=== PATIENT | female | born 1965 | race Caucasian/White ===

== ENCOUNTER → 2017-03-16 | Outpatient (CLI) | payer OTHER ==
[~2017-03-16] MED LIST: ALPR-475 PO; ESTR-8 TD; FAMO-79 PO; IBUP200T64 PO; METO25TA35 PO
== END | disposition home or self-care (01) ==
LOC: CFH 15:45
PROVIDERS: ATTEND Family Medicine
DX: M79.604 Pain in right leg (principal); M79.89 Other specified soft tissue disorders

== ENCOUNTER → 2017-05-22 | Outpatient (CLI) | payer OTHER | END | disposition home or self-care (01) | LOC: CFH 14:58 | PROVIDERS: ATTEND Obstetrics & Gynecology Gynecology | DX: Z12.31 Encounter for screening mammogram for malignant neoplasm of breast (principal) | CPT/HCPCS: G0202 ==

== ENCOUNTER → 2017-07-21 | Outpatient (CLI) | payer OTHER | END | disposition home or self-care (01) | LOC: CFH 07:19 | PROVIDERS: ATTEND Family Medicine | DX: N28.1 Cyst of kidney, acquired (principal) | CPT/HCPCS: 76700 ==

== ENCOUNTER → 2018-05-24 | Outpatient (CLI) | payer OTHER | END | disposition home or self-care (01) | LOC: CFH 09:58 | PROVIDERS: ATTEND Obstetrics & Gynecology | DX: Z12.31 Encounter for screening mammogram for malignant neoplasm of breast (principal) | CPT/HCPCS: 77067 ==

== ENCOUNTER 2018-06-16 12:58 | Emergency (ER) | payer OTHER ==
[~2018-06-16] VITALS: Ht 170.2 cm; Wt 76.5 kg
[2018-06-16 13:26] VITALS: BP 170/96
[2018-06-16] MEDS ORDERED: KETOROLAC 30 MG/1 ML ONE (14:21)
[2018-06-16] MEDS ORDERED: METHOCARBAMOL 750 MG TABLET ONE (14:21)
[2018-06-16] MEDS ORDERED: KETOROLAC 30 MG/1 ML IM ONE (14:30)
[2018-06-16] MEDS ORDERED: METHOCARBAMOL 750 MG TABLET PO ONE (14:30)
[2018-06-16] MEDS ORDERED: METO25TA91 PO (14:47)
[2018-06-16] MEDS ORDERED: METO-93 PO (14:47)
[2018-06-16] MEDS ORDERED: ESTR1PAT65 TD (14:49)
[2018-06-16] MEDS ORDERED: PROG100C16 PO (14:50)
== END 2018-06-16 15:57 | disposition home or self-care (01) ==
LOC: ED 15:51
DX: S06.0X0A Concussion without loss of consciousness, initial encounter (principal); S16.1XXA Strain of muscle, fascia and tendon at neck level, initial encounter; I10 Essential (primary) hypertension; F41.1 Generalized anxiety disorder; W22.8XXA Striking against or struck by other objects, initial encounter; Y93.89 Activity, other specified; Y99.0 Civilian activity done for income or pay; Y92.69 Other specified industrial and construction area as the place of occurrence of the external cause
CPT/HCPCS: 70450; 72125; 96372; 99284; J1885

== ENCOUNTER → 2019-11-03 | Outpatient (CLI) | payer OTHER ==
[~2019-11-03] MED LIST changes: -ALPR-475 PO; +ALPR0.5T7 PO; +BIO CLEANSE PO; +ESTR1PAT65 TD; +EZET10TA70 PO; +METO-93 PO; +METO25TA91 PO; +MULT-516 PO; +OMEG1CAP6 PO; +PROG100C16 PO
[2019-11-03 08:55] LABS: BASOPHILS # (AUTO) 0.02 x10^3/uL (0-0.1); BASOPHILS % (AUTO) 0 % (0-1); EOSINOPHILS # (AUTO) 0.14 x10^3/uL (0-0.4); EOSINOPHILS % (AUTO) 2 % (1-7); LYMPHOCYTES # (AUTO) 2.95 x10^3/uL (1-3.4); LYMPHOCYTES % (AUTO) 41 % (22-44); MD NO; MEAN CORPUSCULAR HEMOGLOBIN 31.8 pg (27.0-34.8); MEAN CORPUSCULAR HGB CONC 33.1 g/dL (32.4-35.8); MEAN CORPUSCULAR VOLUME 95.8 fL (80-100); MEAN PLATELET VOLUME 7.8 fL (7.4-10.4); MONOCYTES # (AUTO) 0.72 x10^3/uL (0.2-0.8); MONOCYTES % (AUTO) 10 % (2-9); NEUTROPHILS # (AUTO) 3.34 x10^3/uL (1.8-6.8); NEUTROPHILS % (AUTO) 47 % (42-75); PLATELET COUNT 279 x10^3/uL (130-400); RED BLOOD COUNT 5.02 x10^6/uL (3.82-5.3); RED CELL DISTRIBUTION WIDTH 13.6 % (9.6-15.2)
[2019-11-03 09:00] LABS: MICROSCOPIC AUTO
[2019-11-03 09:02] LABS: ALANINE AMINOTRANSFERASE 87 U/L (12-78); ALBUMIN 3.7 g/dL (3.4-5.0); ANION GAP 7 mmol/L (5-15); CALCIUM 8.8 mg/dL (8.5-10.1); CHLORIDE 106 mmol/L (98-107); CREATININE 0.85 mg/dL (0.55-1.02)
[2019-11-03 09:04] LABS: ALKALINE PHOSPHATASE 71 U/L (45-117); BILIRUBIN,TOTAL 0.4 mg/dL (0.2-1.0); TOTAL PROTEIN 7.4 g/dL (6.4-8.2)
[2019-11-03 09:11] LABS: CULTURE INDICATED? YES
== END | disposition home or self-care (01) ==
LOC: STAR 07:49
PROVIDERS: ATTEND Obstetrics & Gynecology
DX: N95.0 Postmenopausal bleeding (principal); Z90.710 Acquired absence of both cervix and uterus
CPT/HCPCS: 36415; 80053; 81001; 85025; 87086

== ENCOUNTER 2019-11-08 10:39 | Day surgery (SDC) | payer OTHER ==
[~2019-11-08] VITALS: Ht 170.2 cm; Wt 77.2 kg
[2019-11-08] MEDS ORDERED: LACTATED RINGERS 1,000 ML IV SCH (10:55)
[2019-11-08] MEDS ORDERED: OxyconTIN ER 10 MG TAB.ER PO ONE (11:00)
[2019-11-08] MEDS ORDERED: GABAPENTIN 300 MG CAPSULE PO ONE (11:00)
[2019-11-08] MEDS ORDERED: LIDOCAINE-MPF 1%, 2ML INFIL ONE (11:00)
[2019-11-08] MEDS ORDERED: ACETAMINOPHEN 500 MG TABLET PO ONE (11:00)
[2019-11-08 11:11] VITALS: BP 164/99
[2019-11-08 11:23] LABS: HCG UR SG 1.003 (1.003-1.030)
[2019-11-08 11:28] VITALS: BP 149/88
[2019-11-08] MEDS ORDERED: FLUORESCEIN SODIUM 500 MG/5 ML ONE (12:06)
[2019-11-08] MEDS ORDERED: BUPIVACAINE/PF 0.25% ONE (12:06)
[2019-11-08] MEDS ORDERED: EPINEPHRINE 1 MG/ML, 1ML ONE (12:06)
[2019-11-08] MEDS ORDERED: MIDAZOLAM 1 MG/ML, 2ML ONE (12:36)
[2019-11-08] MEDS ORDERED: FENTANYL PF 250 MCG/5ML ONE (12:37)
[2019-11-08] MEDS ORDERED: ROCURONIUM 10 MG/ML,10ML ONE (12:37)
[2019-11-08] MEDS ORDERED: SUCCINYLCHOLINE 20 MG/ML, 10ML ONE (12:37)
[2019-11-08] MEDS ORDERED: DEXAMETHASONE 4 MG/ML, 1ML ONE ×2 (12:48→14:05)
[2019-11-08] MEDS ORDERED: DIAZEPAM 5 MG/ML, 2ML IVPush PRN (13:30)
[2019-11-08] MEDS ORDERED: hydrALAzine 20 MG/ML, 1ML IV PRN (13:30)
[2019-11-08] MEDS ORDERED: PROMETHAZINE 25 MG/ML, 1ML IV PRN (13:30)
[2019-11-08] MEDS ORDERED: ALBUTEROL SULFATE 2.5 MG/3 ML NPPB PRN (13:30)
[2019-11-08] MEDS ORDERED: LABETALOL 5MG/ML, 20ML IV PRN (13:30)
[2019-11-08] MEDS ORDERED: MEPERIDINE/PF 25MG/ML,1ML IVPush PRN (13:30)
[2019-11-08] MEDS ORDERED: MIDAZOLAM 1 MG/ML, 2ML IV PRN (13:30)
[2019-11-08] MEDS ORDERED: ONDANSETRON 2MG/ML, 2ML IV PRN (13:30)
[2019-11-08] MEDS ORDERED: EPHEDRINE 50 MG/ML, 1ML IVPush PRN (13:30)
[2019-11-08] MEDS ORDERED: PROMETHAZINE 12.5 MG SUPP PR PRN (13:30)
[2019-11-08] MEDS ORDERED: HALOPERIDOL 5 MG/ML IV PRN (13:30)
[2019-11-08] MEDS ORDERED: HYDROmorphone 2 MG/ML, 1ML IVPush PRN (13:30)
[2019-11-08] MEDS ORDERED: ONDANSETRON ODT 8 MG PO PRN (13:30)
[2019-11-08] MEDS ORDERED: SUGAMMADEX 200 MG/2 ML IVPush ONE (14:03)
[2019-11-08] MEDS ORDERED: ONDANSETRON 2MG/ML, 2ML ONE ×2 (14:05)
[2019-11-08] MEDS ORDERED: PROPOFOL 10 MG/ML, 20ML ONE (14:05)
[2019-11-08] MEDS ORDERED: CEFAZOLIN 1,000 MG ONE (14:05)
[2019-11-08] MEDS ORDERED: FENTANYL PF 100 MCG/2ML ONE ×2 (14:07→15:39)
[2019-11-08] MEDS ORDERED: OXYcodone 5 MG/5 ML ORAL.SOL UDC ONE (14:59)
[2019-11-08] MEDS ORDERED: MEPERIDINE/PF 25MG/ML,1ML ONE (14:59)
[2019-11-08] MEDS: OXYcodone 5 MG/5 ML ORAL.SOL UDC PO PRN ×2 (15:31→15:35)
[2019-11-08] MEDS: FENTANYL PF 100 MCG/2ML IV PRN ×2 (15:43→15:48)
== END 2019-11-08 18:20 | disposition home or self-care (01) ==
LOC: OUT 10:39
PROVIDERS: ATTEND Obstetrics & Gynecology
DX: N92.0 Excessive and frequent menstruation with regular cycle (principal); N94.6 Dysmenorrhea, unspecified; N80.0 Endometriosis of uterus; N83.292 Other ovarian cyst, left side; N83.291 Other ovarian cyst, right side; N35.92 Unspecified urethral stricture, female; I10 Essential (primary) hypertension; F41.9 Anxiety disorder, unspecified; E78.5 Hyperlipidemia, unspecified; Z79.890 Hormone replacement therapy; Z80.3 Family history of malignant neoplasm of breast; Z83.3 Family history of diabetes mellitus; Z82.49 Family history of ischemic heart disease and other diseases of the circulatory system
CPT/HCPCS: 36415; 56605; 58552; 81025; 85014; 85018; 86850; 86900; 88305; 88307; J0171; J0330; J0690; J1100; J2175; J2250; J2405; J2704; J3010; J3490; J7120